=== PATIENT | male | born 1955 | race Caucasian/White ===

== ENCOUNTER → 2024-04-07 11:57 | Outpatient (REF) | payer BC, SELFPAY | LOC: MRI 3T 11:57 | PROVIDERS: ATTENDING PHYSICIAN Surgery; FAMILY PHYSICIAN Family Medicine | DX: R97.20 Elevated prostate specific antigen [PSA] (principal) | CPT/HCPCS: 72197; A9575 ==

== ENCOUNTER 2024-07-19 05:03 | Emergency (ER) | payer BC, SELFPAY ==
[2024-07-19 05:08] VITALS: BP 169/82
[2024-07-19 05:29] VITALS: BMI 32.1
[2024-07-19 05:47] VITALS: BP 129/78
[2024-07-19 05:47] LABS: Urine Albumin 1+ (Neg - Trace); Urine Bilirubin Negative (Negative); Urine Character Clear (Clear); Urine Color Yellow; Urine Glucose Negative (Negative); Urine Ketone Negative (Negative); Urine Leukocyte Negative (Negative); Urine Nitrite Negative (Negative); Urine Occult Blood 3+ (Negative); Urine Specific Gravity 1.025 (<1.030); Urine Urobilinogen Negative (Neg - 1+)
[2024-07-19 05:49] LABS: % Basophils 0.7 % (0-2); % Immature Granulocytes 0.2 % (0-0.5); % Lymphocytes 11.4 % (20.5-51.1); % Neutrophils 81.7 % (42.2-75.2); Absolute Basophils 0.1 10^3/uL (0-0.2); Absolute Monocytes 0.5 10^3/uL (0.1-0.6); Absolute Neutrophils 7.2 10^3/uL (1.4-6.5); Hematocrit 45.9 % (39.0-52.0); Mean Corp Hgb Conc. 34.9 g/dL (33.0-37.0); Mean Platelet Volume 9.4 fL (7.4-10.4); Nucleated Red Blood Cells % 0 % (-); Platelet Count 195 10^3/uL (130-400); Red Blood Cell Count 5.16 10^6/uL (4.70-6.10); Red Cell Dist. Width 12.1 % (11.5-14.5); White Blood Cell Count 8.8 10^3/uL (4.8-10.8)
[2024-07-19 06:00] VITALS: BP 122/73
--- NOTE | 2024-07-19 06:14 | ED.GENMED ---
History of Present Illness
General
Chief Complaint: Abdominal Pain
Source: patient and spouse ( states that his abdomen appears slightly distended)
Exam Limitations: none
Time Seen by Provider: 07/19/24 06:05
Nursing documentation reviewed up to this point in time: agreed with
History of Present Illness
History of Present Illness:
69-year-old male presents emergency room complaining of diffuse abdominal pain and distention that began at 12:30 AM. It woke him up from sleep. The pain has improved somewhat. He denies any fevers, nausea, vomiting, diarrhea. He has not had
pain like this in the past. He denies any prior abdominal surgeries. No new medications.
Past History
Past History
ED Past Medical History: Hypercholesterolemia
ED Past Surgical History: Orthopedic (Right rotator cuff repair )
Social History
Tobacco: Non-smoker
Alcohol: Occasional
Drug: None
Personal:
Living: with family
Employment: Employed
Review of Systems
Review of Systems
Allergies reviewed?: Yes
All Other Systems: Not applicable
Constitutional: Reports no symptoms
EENT: Reports no symptoms
Respiratory: Reports no symptoms
Cardiac: Reports no symptoms
ABD/GI: Reports abdominal pain; Denies vomiting, diarrhea, bloody stools or black stools
: Reports no symptoms; Denies dysuria
Musculoskeletal: Reports no symptoms
Skin: Reports no symptoms
Neurological: Reports no symptoms
Endocrine: Reports no symptoms
Hematologic/Lymphatic: Reports no symptoms
Psychiatric: Reports no symptoms
Phy Exam
Physical Exam
Physical Exam:
Physical Exam
General: no apparent distress, not acutely ill
Neck: supple. no meningeal signs. normal posterior pharynx
Heart: s1/s2 regular rate and rhythm, no murmur. equal radial
pulses.
HEENT: Pupils equal round reactive to light, EOMI
Lungs: no acute respiratory distress. clear bilaterally
Abdomen: normal bowel sounds. Mild diffuse tenderness, no rebound or guarding. no CVAT
Neuro: alert and oriented. no focal neurological deficits
Skin: no rash
Psychiatric: well kept. interactive and cooperative
Extremities: no edema. no calf tenderness. negative homans. good distal pulses
Course
Orders/Labs/Results
Orders:
Orders
07/19/24 05:13
Electrocardiogram (*1) Urgent
Reason for Study: Abdominal Pain
EKG- Treatment ONCE
IV Insert/Care/Rem.- Treatment PRN
07/19/24 05:35
Complete Blood Count/With Diff Urgent
Comprehensive Metabolic Panel Urgent
Lipase Urgent
Urinalysis Reflex To Culture Urgent
Date Specimen was Collected: 07/19/24
Time Specimen was Collected: 05:13
Urine Microscopic Reflex Cult Urgent
07/19/24 05:48
Troponin I Urgent
07/19/24 06:14
CT Abd/pelvis W Iv Cont Urgent
Comment:
Reason For Exam: diffuse abdominal pain, 6 hours
Abnormal Lab Results
07/19/24
05:35
Absolute Neuts (auto) 7.2 H 10^3/uL
(1.4-6.5)
Absolute Lymphs (auto) 1.0 L 10^3/uL
(1.2-3.4)
Neutrophils % 81.7 H %
(42.2-75.2)
Lymphocytes % 11.4 L %
(20.5-51.1)
BUN 23 H mg/dl
(9-20)
Glucose 164 H mg/dl
(70-99)
Total Bilirubin 1.6 H mg/dl
(0.2-1.3)
Ur Occult Blood Reflex 3+ A
(Negative)
Urine RBC 3-6 A /HPF
(0-2)
Urine Albumin (Reflex) 1+ A
(Neg - Trace)
07/19/24 05:35
07/19/24 05:35
Vital Signs
Initial and Last Documented VS:
Initial Vital Signs
Temp Pulse Resp BP Pulse Ox
98.5 F 79 20 169/82 97
07/19/24 05:08 07/19/24 05:08 07/19/24 05:08 07/19/24 05:08 07/19/24 05:08
Last Documented Vital Signs
Temp Pulse Resp BP Pulse Ox
98.1 F 72 17 136/80 96
07/19/24 07:32 07/19/24 07:00 07/19/24 07:00 07/19/24 07:00 07/19/24 07:00
MDM/Problems Addressed
Differential Diagnosis Includes:
Bowel obstruction, diverticulitis
MDM/Problems Addressed:
69-year-old male with gastroenteritis. No signs of bowel obstruction or diverticulitis. No chest pain, though normal EKG and troponin. Stable for discharge. Return precautions given. Will prescribe Zofran. Small amount of red blood cells in
urine, patient will follow-up with urology as well.
*Radiology
Radiology exam reviewed: radiology read reviewed (CT abdomen pelvis shows gastroenteritis, normal appendix, no bowel obstruction or diverticulitis, hepatic steatosis)
*Pulse Oximetry
Patient hypoxic: no
*EKG
Interpreted by ED Provider?: Yes
EKG Intrepretation Date: 07/19/24
EKG Intrepretation Time: 05:39
Interpretation: abnormal
Comparison EKG: changes noted
Heart Rate: 71
Rate: normal
Rhythm: sinus
[place]: normal axis
Interval: first degree heart block
QRS Pattern: normal QRS
Ischemia: no ischemia
*Aquacultural Worker Supervisor Interpretation
Rate: normal
Interpretation: normal
Heart Rate: 70
Rhythm: sinus
*Critical Care Note
Total Time (30-74mins, 75-104mins- exclusive of procedures): Not Applicable
Data Reviewed
Review of Other/Old Records Reveals: Records (Colonoscopy by Dr. Junior Abbott on 03/01/2022 reveals 4 mm polyp in ascending colon, removed, 3 mm polyp in transverse colon, removed, 2 mm polyp in descending colon, removed)
Source: records
Patient Management
Social determinants of health affecting care: Living situation and Strong social support
Escalation/DeEscalation of care consider admission/obs:
Admit not indicated
ED Attending Note
-
Portions of this chart may have been created with voice recognition software.� Occasional wrong word or��sound alike� substitutions may have occurred due to the inherent limitations of voice recognition software.
Discharge Plan
Departure
Patient Disposition: Home (Routine Discharge)
Date of Disposition: 07/19/24
Time of Disposition: 07:55
Patient with high blood pressure during this ER visit?: Yes
Condition: Good
Discharge Problem:
Gastroenteritis, Fatty liver, Hematuria
Instructions: Viral gastroenteritis in adults, Metabolic dysfunction-associated steatotic liver disease, Blood in Urine (Hematuria), Adult ED, Abdominal pain in adults - ED discharge instructions, Abdominal Pain, BLOOD PRESSURE
Prescriptions:
New
ondansetron 4 mg tablet,disintegrating
4 mg PO Q8H PRN (Reason: nausea and vomiting) 4 Days Qty: 7 0RF
No Action
simvastatin 20 MG tablet
20 mg PO QPM
Hydrochlorothiazide Plus
1 tab PO DAILY
Rx Instructions:
10/12.5 mg daily
aspirin 81 mg Tablet,Chewable
81 mg PO DAILY
Referrals:
Nam Daniels MD [Family Provider] -
Jaime Luna Jr., MD [Active] - Call in 1-3 days for appt
Activity Restrictions/Additional Instructions:
Follow-up with primary care. Return for any concerns.
Interventions
Interventions:
*Risk Screen - Suicide Last Done: 07/19/24 05:08
*General Assessment Last Done: 07/19/24 05:08
*Neglect/Abuse Screening Last Done: 07/19/24 05:08
*ED- Fall Risk Assessment Last Done: 07/19/24 07:11
*ED COVID-19 Vaccine History Last Done: 07/19/24 05:08
DI-Wwsvar-Zpxrqlvwma Assessment Last Done: 07/19/24 07:08
Discharge Date and Time
Print Language: KOREAN
[2024-07-19 06:20] LABS: Urine White Cell 0-2 /HPF (0-5)
[2024-07-19 06:26] LABS: Troponin I < 0.012 ng/ml
[2024-07-19 06:34] LABS: ALT (SGPT) 37 U/L (0-50); AST (SGOT) 26 U/L (17-59); Albumin 4.2 g/dl (3.5-5.0); Alkaline Phosphatase 62 U/L (38-126); Blood Urea Nitrogen 23 mg/dl (9-20); Calcium 9.4 mg/dl (8.4-10.2); Carbon Dioxide 25 mmol/L (22-30); Chloride 106 mmol/L (98-107); Estimated Creatinine Clearance 80 ml/min; Glucose 164 mg/dl (70-99); Lipase 84 U/L (23-300); Potassium 4.2 mmol/L (3.5-5.1); Sodium 139 mmol/L (135-145); Total Bilirubin 1.6 mg/dl (0.2-1.3); Total Protein 6.7 g/dl (6.3-8.2); eGFR > 60.00
[2024-07-19 07:00] VITALS: BP 136/80
== END 2024-07-19 08:10 | disposition home or self-care (01) ==
LOC: EMR 05:03
PROVIDERS: Emergency Medicine; EMERGENCY PHYSICIAN Emergency Medicine; FAMILY PHYSICIAN Student in an Organized Health Care Education/Training Program
DX: K52.9 Noninfective gastroenteritis and colitis, unspecified (principal); K76.0 Fatty (change of) liver, not elsewhere classified; E78.00 Pure hypercholesterolemia, unspecified; R31.9 Hematuria, unspecified
CPT/HCPCS: 99284; 74177; 80053; 81003; 81015; 83690; 84484; 85025; 93005; Q9967